=== PATIENT | female | born 2000 | race Caucasian/White ===

== ENCOUNTER 2019-12-07 20:59 | Inpatient (IN) ==
[2019-12-07] MEDS ORDERED: OXYTOCIN 30 UNITS/500 ML BAG IV PRN ×2 (22:24)
--- NOTE | 2019-12-07 22:24 | History & Physical Report ---
Date of Service December 07, 2019 Assessment & Plan (1) Full-term premature rupture of membranes (PROM) with unknown onset of labor: (2) Obesity affecting , antepartum: (3) Diet controlled gestational diabetes mellitus: admit, iv, pitocin, fhts categ 1. explained to pt now PROM is prolonged and need to induce labor. pt and family member verbalized understanding. check glucose now and q2hr in active labor. History of Present Illness Chief Complaint: Leaking fluid since 0630 today. Primary Care Provider: Ruby Mejia 19yo at 40+wks ega presents to L&D with above cc. Called me this am and noted some blood and ? leaking. Advised to put pad on and call me in one hour if soaked. She neglected to call but did not all day wetting pads. She did not call this evening and walked into L&D. Still some spotting. +FM. Some ctx, not painful. pnc c/b 1. obesity 2. gdm diet controlled (last ac%34) pnl rh pos, rubella immune, gbs neg obh: g1 gynh: no stds, normal pap smears pmh: obesity, see below psh: see below Allergies Allergy/AdvReac Type Severity Reaction Status Date / Time No Known Allergies Allergy Verified 11/24/19 13:50 Home Medications Home Medications Medication Instructions Recorded Confirmed Type prenat.vits,marie,izc-dlul-rhttw 1 tab PO DAILY 06/11/19 12/07/19 History cetirizine [Zyrtec] 10 mg PO DAILY 12/07/19 12/07/19 History Patient History Medical History (Updated 12/07/19 @ 22:23 by Janay Akbar MD, FACOG) Clubbed foot History of clubfoot History of seasonal allergies History of varicella vaccination No chronic diseases present (Resolved) Vaginal irritation (Resolved) Surgical History (Updated 12/07/19 @ 21:22 by Sarah Giles RN) H/O knee surgery No significant past surgical history (Resolved) S/P parathyroidectomy S/P tonsillectomy S/P wisdom tooth extraction Social History (Updated 06/11/19 @ 10:06 by Saadia Armando) Preferred Language: Slovenian Communication Ability: Effective Beliefs That Will Affect Care: None marital status: Single Current Living Situation: Family Current Living Situation Comment: lives with boyfriend and his mom Other Information That Helps Us Care for You: No Feels Safe at Home: Yes Safety Concerns: Feels Safe At This Time Smoking Status: Never smoker Hx Alcohol Use: No Hx Substance Use: No Review of Systems as per Subjective / HPI Physical Exam Constitutional: WD/WN, vitals as above Respiratory: normal respiratory effort, lungs clear to auscultation Cardiovascular: Rate/Rhythm: regular rate and regular rhythm Gastrointestinal (Abdomen): soft gravid nt, obese, efw 8# Musculoskeletal: tr edema nontender calves Neurologic: grossly normal Psychiatric: A+Ox3, euthymic affect Genitourinary: Manual OB Exam: + cervical dilation 2 cm, + cervical effacement (75%), + station -2 and + amniotic fluid (SSE no pool, +nitrazine, +ferning. forebag arom) clear, nitrazine positive and ferning present OB Exam Monitor Tracing: + external FHT monitor used (125 mod variability), + external uterine monitor used (q8), + category I and + normal FHT variability cephalic by us Results & Data Vital Signs (Past 12 Hours) Vital Signs Temp Pulse Resp BP 12/07/19 21:37 71 132/70 12/07/19 21:23 98.8 F 20 12/07/19 21:19 71 162/71 H 12/07/19 21:12 73 171/79 H Code Status & VTE Plan VTE Prophylaxis Plan VTE Prophylaxis will be ordered: No Coding Level of Care Code None Diagnoses Full-term premature rupture of membranes (PROM) with unknown onset of labor O42.90 Obesity affecting , antepartum O99.210 Diet controlled gestational diabetes mellitus O24.410
[2019-12-07 22:41] LABS: Hemoglobin 13.5 g/dL (12.0-16.0); Mean Corpuscular Hemoglobin 29.3 pg (25-34); Mean Corpuscular Volume 86.8 fL (80-100); Mean Platelet Volume 9.4 fL (7.4-10.4); Platelet Count 240 K/uL (130-400); RDW Coefficient of Variation 13.4 % (11.5-14.5); RDW Standard Deviation 42.1 fL (36.4-46.3); Red Blood Count 4.61 M/uL (4.2-5.4); White Blood Count 14.35 K/uL (4.8-10.8)
[2019-12-07 22:49] LABS: Mean Corpuscular Hgb Conc 33.8 g/dL (32-36)
[2019-12-07] MEDS: LACTATED RINGER'S 1,000 ML IV PRN (23:16)
[2019-12-08] MEDS ORDERED: ePHEDrine sulfate 50 MG/ML AMP ONE (02:04)
[2019-12-08] MEDS ORDERED: fentaNYL citrate 100 MCG/2 ML VIAL ONE (02:04)
[2019-12-08] MEDS ORDERED: BUPIVACAINE 0.25% 30 ML VIAL ONE (02:04)
[2019-12-08] MEDS ORDERED: fentaNYL 2MCG/ML ROPIV 1.25MG/ML 100 ML BAG EPI ONE (02:05)
--- NOTE | 2019-12-08 02:34 | Anesthesiology Consultation ---
Date of Service December 08, 2019 Assessment & Plan ASA ASA2 Proposed Anesthesia Anesthesia Type: Labor Epidural Risk / Benefits Reviewed With: PT / POA / Parent / Guardian, Accepts Plan and Informed Consent Obtained History Height/Weight Height: 5 ft 9 in Weight: 134.717 kg Allergies Allergy/AdvReac Type Severity Reaction Status Date / Time No Known Allergies Allergy Verified 11/24/19 13:50 Medications Home Medications Medication Instructions Recorded Confirmed Last Taken prenat.vits,marie,bjb-ahko-kcwpm 1 tab PO DAILY 06/11/19 12/07/19 Unknown cetirizine [Zyrtec] 10 mg PO DAILY 12/07/19 12/07/19 Unknown Active Medications Generic Name Dose Route Start Last Admin Trade Name Freq PRN Reason Stop Dose Admin Lactated Ringer's 1,000 mls @ 125 mls/hr 12/07/19 22:24 12/08/19 01:58 Lr IV 12/09/19 22:23 999 mls/hr .Q8H PRN Infusion L&D Protocol Protocol Oxytocin 30 units in 500 mls @ 7 mls/hr 12/07/19 22:24 12/08/19 01:00 Pitocin IV 12/09/19 22:23 0.42 units/hr .Q24H PRN 7 mls/hr Labor Induction/Augmentation Titration Protocol 0.42 UNITS/HR Past Medical History Medical History Clubbed foot History of clubfoot History of seasonal allergies History of varicella vaccination No chronic diseases present (Resolved) Vaginal irritation (Resolved) Exercise / Class Metabolic Activity II 4-5 Yardwork/Stairs/Walk up hill Past Surgical History Surgical History H/O knee surgery No significant past surgical history (Resolved) S/P parathyroidectomy S/P tonsillectomy S/P wisdom tooth extraction Past Anesthesia History No Hx of Anesthesia Complications and No Family Hx of Anesthesia Complications History of PONV No Hx of PONV and No Hx of Motion Sickness Social History Smoking Status: Never smoker Hx Alcohol Use: No Hx Substance Use: No substance use type: does not use Review of Systems denies fever/cough/ colds/ chest pain/ SOB/ JOSE Constitutional: no fever and no chills Respiratory: no cough and no dyspnea denies JOSE Cardiovascular: no chest pain and no dyspnea on exertion Physical Exam Vital Signs Last Vital Signs Temp 36.6 C 12/08/19 01:38 Pulse 77 12/08/19 02:32 Resp 18 12/08/19 01:38 BP 144/79 H 12/08/19 02:19 Pulse Ox 98 12/08/19 02:32 ENMT Mouth: no TMJ abnormality and no dentition abnormality Thyromental Distance: > or= 3.5 Finger Breadths Mallampati Class: II Neck neck extension not limited Respiratory normal respiratory effort; no respiratory distress Auscultation: lungs clear to auscultation bilaterally Cardiovascular Rate/Rhythm: regular rate and regular rhythm Neurologic moves all extremities Psychiatric Orientation: alert and oriented x 3 Testing Laboratory Results 12/07/19 22:33 12/08/19 12/07/19 01:43 22:24 POC Glucose 79 77
[2019-12-08] MEDS ORDERED: DiphenhydrAMINE HCL 50 MG/ML VIAL IV PRN (03:10)
[2019-12-08] MEDS ORDERED: ONDANSETRON INJ 2 MG/ML 2 ML VIAL IV PRN (03:10)
[2019-12-08] MEDS ORDERED: NALOXONE HCL 0.4 MG/1 ML VIAL/CARP IV PRN (03:10)
[2019-12-08] MEDS ORDERED: NALBUPHINE HCL INJ 10 MG/ML AMP IV PRN (03:10)
[2019-12-08] MEDS ORDERED: ePHEDrine sulfate 50 MG/ML AMP IV PRN (03:10)
[2019-12-08] MEDS ORDERED: fentaNYL 2MCG/ML ROPIV 1.25MG/ML 100 ML BAG EPI PRN (03:10)
[2019-12-08] MEDS ORDERED: NALOXONE HCL 1 MG in SODIUM CHLORIDE 0.9% 1000ML 1,000 ML IV PRN (03:10)
[2019-12-08] MEDS: LACTATED RINGER'S 1,000 ML IV PRN ×2 (03:16→06:27)
--- NOTE | 2019-12-08 03:19 | Labor Progress Brief Note ---
Date of Service December 08, 2019 Subjective Reason For Note: Other (strip review) just had epidural placed 4cm per nurse prior to epidural, pit at 7 Assessment & Plan (1) Full-term premature rupture of membranes (PROM) with unknown onset of labor: (2) Diet controlled gestational diabetes mellitus: good cx change per nursing exam. fhts categ 1. c/w pit Physical Exam Constitutional: WD/WN, vitals as above Psychiatric: A+Ox3, euthymic affect Genitourinary: Manual OB Exam: + cervical dilation 4 cm OB Exam Monitor Tracing: + external FHT monitor used (115 mod variability ?early decels), + external uterine monitor used (q3), + category I and + normal FHT variability Results & Data Vital Signs (Past 12 Hours) Vital Signs Temp Pulse Resp BP Pulse Ox 12/08/19 03:12 83 100 12/08/19 03:10 83 124/58 L 12/08/19 03:08 82 128/58 L 12/08/19 03:07 83 128/59 L 100 12/08/19 03:04 88 141/65 H 12/08/19 03:02 81 140/65 100 12/08/19 03:01 78 140/67 12/08/19 02:59 90 92 12/08/19 02:57 80 141/97 H 100 12/08/19 02:52 76 100 12/08/19 02:47 75 100 12/08/19 02:46 83 88 L 12/08/19 02:42 92 H 100 12/08/19 02:37 85 100 12/08/19 02:36 103 H 91 12/08/19 02:32 77 98 12/08/19 02:27 92 H 100 12/08/19 02:22 70 100 12/08/19 02:19 75 144/79 H 12/08/19 02:17 100 H 100 12/08/19 02:12 75 100 12/08/19 01:38 97.9 F 18 12/08/19 01:37 81 156/72 H 12/08/19 01:36 74 168/82 H 12/08/19 00:32 71 134/81 12/07/19 23:24 98.1 F 71 18 129/72 12/07/19 21:37 71 132/70 12/07/19 21:23 98.8 F 20 02/20 21:19 71 162/71 H 12/07/19 21:12 73 171/79 H Coding Level of Care Code None Diagnoses Full-term premature rupture of membranes (PROM) with unknown onset of labor O42.90 Diet controlled gestational diabetes mellitus O24.410
--- NOTE | 2019-12-08 07:34 | Delivery Summary ---
Vaginal Delivery Summary Date of Service December 08, 2019 The patient dilated to complete and pushed to deliver a viable male infant s and 9 via over intact perineum. Mouth and nose bulb suctioned at perineum. Shoulders and body delivered with ease. Infant was vigorous and crying at . Cord clamped and infant to maternal abdomen where the cord was then doubly clamped and cut. Placenta delivered spontaneously and intact, three-vessel cord. Hemostasis achieved with dilute pitocin and uterine massage. Cervix and sulci intact. EBL 300 cc. Mother and baby stable in recovery.
[2019-12-08] MEDS ORDERED: OXYTOCIN 20 UNITS in LACTATED RINGER'S 1,000 ML IV SCH (08:00)
[2019-12-08 08:13] LABS: Base Excess Cord Arterial Bld -6.2 mEq/L (-9-1.8); CO2 Cord Arterial Blood 75 mmHg (39.1-73.5); HCO3 Cord Arterial Blood 25 mmol/L (19.7-28.5); PO2 Cord Arterial Blood 16 mmHg (4.1-31.7)
[2019-12-08 08:17] LABS: Oxygen Sat Cord Arterial Blood < 60.0 % (<60)
[2019-12-08 08:18] LABS: Base Excess Cord Venous Blood -0.3 mEq/L (-7.7-1.9); Cord Venous Blood HCO3 21 mmol/L (18.4-26.8); Cord Venous Blood PCO2 28 mmHg (30.4-57.2); Cord Venous Blood PO2 36 mmHg (14.1-43.3); pH Cord Arterial Blood 7.14 (7.1-7.38)
[2019-12-08] MEDS: PRENATAL VITAMIN 1 TAB PO SCH (08:36)
[2019-12-08] MEDS ORDERED: ACETAMINOPHEN 325 MG TAB PO PRN (08:36)
[2019-12-08] MEDS ORDERED: DIPHTHERIA/TETANUS/PERTUSSIS 0.5 ML SYR/VIAL IM ONE (08:36)
[2019-12-08] MEDS: DOCUSATE SODIUM 100 MG CAP PO SCH ×2 (08:36→21:04)
[2019-12-08] MEDS ORDERED: OXYTOCIN 30 UNITS/500 ML BAG IV PRN (08:36)
[2019-12-08] MEDS ORDERED: BENZOCAINE 20% AER SPR 82.5 GM CAN EXT PRN (08:36)
[2019-12-08] MEDS ORDERED: SUPERCREAM 0.870% 15 GM JAR EXT PRN (08:36)
[2019-12-08] MEDS ORDERED: HYDROCORTISONE ACETATE 25 MG SUPP PR PRN (08:36)
[2019-12-08] MEDS ORDERED: bisacodyL 10 MG SUPP PR PRN (08:36)
[2019-12-08] MEDS ORDERED: IBUPROFEN 600 MG TAB PO PRN (08:36)
[2019-12-08] MEDS ORDERED: NON-FORMULARY MEDICATION (Prenat.Vits,Cal,Min-Iron-Folic 1 TAB) PO SCH (09:00)
[2019-12-08] MEDS: CETIRIZINE HCL 10 MG TABLET PO SCH (09:00)
--- NOTE | 2019-12-08 09:04 | Anesthesia Procedure Note ---
Date of Service December 08, 2019 Anesthesia Post Epidural Note Vital Signs Vital Signs: Temp Pulse Resp BP Pulse Ox 36.6 C 87 18 138/58 L 61 L 12/08/19 05:29 12/08/19 08:47 12/08/19 07:00 12/08/19 08:47 12/08/19 07:13 Notes Mental Status: alert / awake / arousable Nausea / Vomiting: adequately controlled Pain: adequately controlled Airway Patency, RR, SpO2: stable & adequate BP & HR: stable & adequate Hydration State: stable & adequate Neuraxial Anesthesia: was administered and sensory block is resolving Anesthetic Complications: no major complications apparent and Pt Satisfied with anesthetic care Epidural: Removed without complications and With tip intact
--- NOTE | 2019-12-09 06:23 | Obstetrical Progress Note ---
Date of Service December 09, 2019 Assessment & Plan (1) Status post vaginal delivery: Carol is a 19 yo on PPD 1 after at 40w - GBS -, Rh+, Rubella immune -Vitals reviewed: BP currently at 144/74; in past 24 hours, systolics have been as high as 161, diastolic max at 81; continue to monitor -patient is doing clinically well - After discharge will have [address] Akbar. Supervising Physician Co-Signing Physician Notes Resident Physician Supervision Note: I was present with Dr. Hunter during the history and exam. I discussed the case with the resident and agree with the findings and plan as documented in the note. Any exceptions or clarifications are listed here: [None] Documented By: Armando Alan MD, FACOG Subjective Ambulation: ambulating normally Voiding: no voiding problems Passing Gas:: Yes Diet Tolerance:: regular diet Lochia:: Small Feeding Type:: breast feeding Review of Systems Constitutional: no fever, no chills and no sweats Eyes: no worsening vision Respiratory: no cough and no dyspnea Cardiovascular: no chest pain, no palpitations, no edema and no calf pain Gastrointestinal: no nausea and no vomiting Genitourinary: no dysuria and no urinary frequency Neurologic: no headache(s) Physical Exam Constitutional: WD/WN, vitals as above no acute distress Respiratory: normal respiratory effort, lungs clear to auscultation does not use accessory muscles Auscultation: no crackles, no rales, no rhonchi, no wheezes and no pleural rub Cardiovascular: Rate/Rhythm: regular rate and regular rhythm Heart Sounds: normal S1 and normal S2; no gallop, no murmur and no cardiac rub Extremities: no calf tenderness and no pedal edema Gastrointestinal (Abdomen): Inspection/Auscultation: normal bowel sounds; abdomen not distended Percussion/Palpation: abdomen soft Genitourinary: Uterus: fundus firm, palpable 1 cm below the umbilicus Results & Data Vital Signs (Past 12 Hours) Vital Signs Temp Pulse Resp BP Pulse Ox 12/09/19 04:30 36.6 C 66 16 144/74 H 96 12/08/19 23:45 36.8 C 85 16 125/63 97 12/08/19 19:50 36.6 C 65 18 119/70 98 Resident Activity Tracking Resident Involvement: Resident Care Provided Care Provided: OB Delivery
[2019-12-09 07:04] LABS: Hemoglobin 12.3 g/dL (12.0-16.0); Mean Corpuscular Hemoglobin 29.1 pg (25-34); Mean Corpuscular Hgb Conc 33.2 g/dL (32-36); Mean Corpuscular Volume 87.5 fL (80-100); Mean Platelet Volume 9.2 fL (7.4-10.4); Platelet Count 208 K/uL (130-400); RDW Coefficient of Variation 13.8 % (11.5-14.5); RDW Standard Deviation 43.8 fL (36.4-46.3); Red Blood Count 4.23 M/uL (4.2-5.4); White Blood Count 14.92 K/uL (4.8-10.8)
[2019-12-09] MEDS: PRENATAL VITAMIN 1 TAB PO SCH (07:37)
[2019-12-09] MEDS: DOCUSATE SODIUM 100 MG CAP PO SCH (07:37)
[2019-12-09] MEDS: CETIRIZINE HCL 10 MG TABLET PO SCH (07:37)
[2019-12-09] MEDS ORDERED: bisacodyL 5 MG TABEC PO SCH (20:00)
[2019-12-10 05:53] LABS: Hemoglobin 13.6 g/dL (12.0-16.0)
--- NOTE | 2019-12-10 06:21 | Obstetrical Progress Note ---
Date of Service December 10, 2019 Assessment & Plan (1) Status post vaginal delivery: Carol is a 19 yo on PPD 2 after at 40w - GBS -, Rh+, Rubella immune - patient is doing clinically well Discharge instructions reviewed - After discharge will have [address] Akbar. Supervising Physician Co-Signing Physician Notes Resident Physician Supervision Note: I was present with Dr. Aguilar during the history and exam. I discussed the case with the resident and agree with the findings and plan as documented in the note. Any exceptions or clarifications are listed here: Patient ready for d/c. Instructions given, f/u in 6 weeks Documented By: Jesus Otoole Jr, MD, FACOG Subjective Ambulation: ambulating normally Voiding: no voiding problems Passing Gas:: Yes Diet Tolerance:: regular diet Lochia:: Small Feeding Type:: breast feeding Review of Systems Constitutional: no fever, no chills and no sweats Eyes: no worsening vision Respiratory: no cough and no dyspnea Cardiovascular: no chest pain, no palpitations, no edema and no calf pain Gastrointestinal: no nausea and no vomiting Genitourinary: no dysuria and no urinary frequency Neurologic: no headache(s) Physical Exam Constitutional: WD/WN, vitals as above no acute distress Respiratory: normal respiratory effort, lungs clear to auscultation does not use accessory muscles Auscultation: no crackles, no rales, no rhonchi, no wheezes and no pleural rub Cardiovascular: Rate/Rhythm: regular rate and regular rhythm Heart Sounds: normal S1 and normal S2; no gallop, no murmur and no cardiac rub Extremities: no calf tenderness and no pedal edema Gastrointestinal (Abdomen): Inspection/Auscultation: normal bowel sounds; abdomen not distended Percussion/Palpation: abdomen soft Genitourinary: Uterus: fundus firm, palpable 2 cm below the umbilicus Results & Data Vital Signs (Past 12 Hours) Vital Signs Temp Pulse Resp BP Pulse Ox 12/09/19 23:05 36.6 C 64 18 149/75 H 98 12/09/19 20:10 36.6 C 63 16 146/71 H 97 Resident Activity Tracking Resident Involvement: Resident Care Provided Care Provided: OB Delivery
[2019-12-10] MEDS: DOCUSATE SODIUM 100 MG CAP PO SCH (08:52)
[2019-12-10] MEDS: CETIRIZINE HCL 10 MG TABLET PO SCH (08:52)
[2019-12-10] MEDS: PRENATAL VITAMIN 1 TAB PO SCH (08:52)
== END 2019-12-10 16:45 | disposition home or self-care (01) | DRG 807 ==
LOC: OPB 20:59 → 4S1 21:01 → 4S2 12-08 10:48